=== PATIENT | female | born 1975 | race Caucasian/White ===

== ENCOUNTER 2023-12-23 21:41 | Emergency (ER) | payer OTHER, SELFPAY ==
[2023-12-23 21:43] VITALS: BP 192/116
[2023-12-23 22:38] VITALS: BMI 45.2
[2023-12-23 22:42] LABS: Glucose - Point of Care 110 mg/dl (70-99)
[2023-12-23 22:53] LABS: % Basophils 0.4 % (0-2); % Eosinophils 0.9 % (0-6); % Immature Granulocytes 0.3 % (0-0.5); % Lymphocytes 23.7 % (20.5-51.1); % Monocytes 6.2 % (1.7-9.3); % Neutrophils 68.5 % (42.2-75.2); Absolute Basophils 0.1 10^3/uL (0-0.2); Absolute Eosinophils 0.1 10^3/uL (0-0.7); Absolute Lymphocytes 3.2 10^3/uL (1.2-3.4); Absolute Monocytes 0.8 10^3/uL (0.1-0.6); Absolute Neutrophils 9.2 10^3/uL (1.4-6.5); Hematocrit 41.7 % (37.0-47.0); Hemoglobin 13.6 g/dL (12.0-16.0); Mean Corp Hgb Conc. 32.6 g/dL (33.0-37.0); Mean Corpuscular Hgb 26.8 pg (27.0-31.0); Mean Corpuscular Volume 82.2 fL (81.0-99.0); Mean Platelet Volume 11.5 fL (7.4-10.4); Nucleated Red Blood Cells % 0 %; Platelet Count 312 10^3/uL (130-400); Red Blood Cell Count 5.07 10^6/uL (4.20-5.40); Red Cell Dist. Width 13.7 % (11.5-14.5); White Blood Cell Count 13.5 10^3/uL (4.8-10.8)
[2023-12-23 23:03] LABS: INR 1.03; PT 13.3 Sec (11.4-14.6)
[2023-12-23 23:04] LABS: APTT 27.2 Sec (23.4-35.0)
[2023-12-23 23:06] LABS: HCG, Serum Qualitative Screen Negative
[2023-12-23 23:08] LABS: ALT (SGPT) 26 U/L (0-35); AST (SGOT) 24 U/L (14-36); Acetaminophen < 10 ug/ml (10-30); Albumin 4.4 g/dl (3.5-5.0); Alkaline Phosphatase 92 U/L (38-126); Blood Urea Nitrogen 13 mg/dl (7-17); Calcium 9.2 mg/dl (8.4-10.2); Carbon Dioxide 28 mmol/L (22-30); Chloride 104 mmol/L (98-107); Estimated Creatinine Clearance 117 ml/min; Glucose 117 mg/dl (70-99); Salicylate < 1.0 mg/dl (2.0-20.0); Sodium 138 mmol/L (135-145); Total Bilirubin 0.3 mg/dl (0.2-1.3); Total Protein 7.3 g/dl (6.3-8.2); eGFR > 60.00
[2023-12-23 23:10] LABS: Alcohol None Detected
[2023-12-23 23:19] LABS: Urine Albumin Negative (Neg - Trace); Urine Bilirubin Negative (Negative); Urine Character Clear (Clear); Urine Color Straw; Urine Glucose Negative (Negative); Urine Ketone Negative (Negative); Urine Leukocyte Negative (Negative); Urine Nitrite Negative (Negative); Urine Occult Blood Negative (Negative); Urine Urobilinogen Negative (Neg - 1+)
--- NOTE | 2023-12-23 23:21 | ED.GENMED ---
History of Present Illness
General
Chief Complaint: Crisis Evaluation
Source: patient
Exam Limitations: none
Time Seen by Provider: 12/23/23 22:09
Nursing documentation reviewed up to this point in time: agreed with
Travel History
Have you had any contact with someone who has COVID-19?: No
Do you have any symptoms of coronavirus? Fever > 100 degrees, chills, cough, shortness of breath, sore throat, loss of taste or smell, muscle aches, or headache?: No
History of Present Illness
History of Present Illness:
48-year-old female presents to crisis and then to the emergency department stating that she is no longer able to care for herself and reports that she is 'not mentally well '. She states that she has been paranoid and delusional and feels that she
needs to be hospitalized. Her 27-year-old daughter brought her in for crisis evaluation. Patient states that she does not want her family to know that she is in the emergency department. Her 12-year-old daughter is now in the care of her father.
Patient denies suicidal or homicidal ideation, intent, or plan. She denies any self-injurious behaviors. She does report having several alcoholic beverages earlier today. She did smoke marijuana but states that she has a medical marijuana card.
Past History
Past History
ED Past Medical History: GERD and Psychiatric (paranoid); Negative Asthma, HTN, Hypercholesterolemia or NIDDM
ED Past Surgical History: Cholecystectomy
Social History
Tobacco: Smoker
Alcohol: None
Personal: Other (Seperated)
Living: with family
Employment: Employed
Review of Systems
Review of Systems
Allergies reviewed?: Yes
All Other Systems: ROS reviewed and negative except as documented in HPI and ROS
Constitutional: Reports no symptoms
EENT: Reports no symptoms
Respiratory: Reports no symptoms
Cardiac: Reports no symptoms
ABD/GI: Reports no symptoms
: Reports no symptoms
Musculoskeletal: Reports no symptoms
Skin: Reports no symptoms
Neurological: Reports no symptoms
Endocrine: Reports no symptoms
Hematologic/Lymphatic: Reports no symptoms
Psychiatric: Reports depression, anxiety and hallucinations; Denies suicidal
Phy Exam
General Physical Exam
General Presentation: well appearing and no apparent distress
General Skin: warm and dry
General Habitus: normal
General Mental: alert
General Hydration: appears well hydrated
ENT Exam
ENT Exam: EOMI, pharynx normal, neck supple and normocephalic
Eye Exam
Eye Exam: PERRL, cornea clear and conjunctiva normal
Cardiovascular Exam
Cardiovascular Exam: regular rate/rhythm, no edema, no murmur and normal peripheral pulses
Pulmonary Exam
Pulmonary Exam: lungs clear, no respiratory distress, no rales, no crackles, no rhonchi, no stridor, no wheezing and no cough
Gastrointestinal Exam
Gastrointestinal Exam: normal bowel sounds, non tender, soft, no organomegaly, no pulsatile mass and non distended
Neurological Exam
Neurological Exam: alert, oriented x3, no motor deficits and speech normal
Musculoskeletal Exam
Musculoskeletal Exam: full ROM and no edema
Skin Exam
Skin Exam: normal color, warm/dry, no rash and no petechia
Psychiatric Exam
Psychiatric Exam: normal mood/affect
Course
Orders/Labs/Results
Orders:
Orders
12/23/23 22:09
Bedside Glucose- Treatment ONCE
12/23/23 22:10
Test Result ONCE
12/23/23 22:39
Acetaminophen Urgent
Alcohol Urgent
Complete Blood Count/With Diff Urgent
Comprehensive Metabolic Panel Urgent
HCG, Serum Qualitative Screen Urgent
PTT Urgent
Prothrombin Time Urgent
Salicylate Urgent
12/23/23 23:10
Urinalysis Reflex To Culture Urgent
Date Specimen was Collected: 12/23/23
Time Specimen was Collected: 23:08
12/23/23 23:11
Urine Drug Abuse Screen Urgent
Date Specimen was Collected: 12/23/23
Time Specimen was Collected: 23:08
Abnormal Lab Results
12/23/23 12/23/23 12/23/23
22:39 22:40 23:11
WBC 13.5 H 10^3/uL
(4.8-10.8)
MCH 26.8 L pg
(27.0-31.0)
MCHC 32.6 L g/dL
(33.0-37.0)
MPV 11.5 H fL
(7.4-10.4)
Absolute Neuts (auto) 9.2 H 10^3/uL
(1.4-6.5)
Absolute Monos (auto) 0.8 H 10^3/uL
(0.1-0.6)
Glucose 117 H mg/dl
(70-99)
Salicylates < 1.0 L mg/dl
(2.0-20.0)
Acetaminophen < 10 L ug/ml
(10-30)
U Marijuana (THC) Screen Positive H
(Negative)
POC Glucose 110 H mg/dl
(70-99)
12/23/23 22:39
12/23/23 22:39
Vital Signs
Initial and Last Documented VS:
Initial Vital Signs
Temp Pulse Resp BP Pulse Ox
98.3 F 95 18 192/116 98
12/23/23 21:43 12/23/23 21:43 12/23/23 21:43 12/23/23 21:43 12/23/23 21:43
Last Documented Vital Signs
Temp Pulse Resp BP Pulse Ox
98.3 F 95 18 192/116 98
12/23/23 21:43 12/23/23 21:43 12/23/23 21:43 12/23/23 21:43 12/23/23 21:43
*Critical Care Note
Total Time (30-74mins, 75-104mins- exclusive of procedures): Not Applicable
ED Attending Note
-
Portions of this chart may have been created with voice recognition software.� Occasional wrong word or��sound alike� substitutions may have occurred due to the inherent limitations of voice recognition software.
Discharge Plan
Departure
Patient Disposition: [facility]
Date of Disposition: 12/23/23
Time of Disposition: 23:47
Discharge Problem:
Delusion, Unable to care for self, Acute paranoia
Prescriptions:
No Action
sertraline 100 MG tablet
100 mg PO DAILY 0RF
penicillin V potassium 500 mg tablet
500 mg PO Q6H 7 Days Qty: 28 0RF
Referrals:
UNKNOWN - PT NOT,INTERVIEWE [Family Provider] -
Interventions
Interventions:
*Risk Screen - Suicide Last Done: 12/23/23 21:43
*General Assessment Last Done: 12/23/23 21:43
*Neglect/Abuse Screening Last Done: 12/23/23 21:43
ED- Fall Risk Assessment Last Done: 12/23/23 22:38
*ED COVID-19 Vaccine History Last Done: 12/23/23 21:43
ED-Psychological Assessment Last Done: 12/23/23 22:48
Discharge Date and Time
Print Language: OCCITAN
[2023-12-23 23:47] LABS: Amphetamines Negative (Negative); Barbiturates Negative (Negative); Benzodiazepines Negative (Negative); Buprenorphine Negative (Negative); Cocaine Negative (Negative); Marijuana Positive (Negative); Methadone Negative (Negative); Methamphetamines Negative (Negative); Opiates Negative (Negative); Phencyclidine Negative (Negative); Tricyclic Antidepressants Negative (Negative)
[2023-12-24 00:20] VITALS: BP 130/82
== END 2023-12-24 00:22 ==
LOC: EMR 21:41
PROVIDERS: EMERGENCY PHYSICIAN Student in an Organized Health Care Education/Training Program
DX: F22 Delusional disorders (principal); Z74.1 Need for assistance with personal care; F17.200 Nicotine dependence, unspecified, uncomplicated
CPT/HCPCS: 99285; 80053; 80143; 80179; 80306; 81003; 82077; 82962; 84703; 85025; 85610; 85730